=== PATIENT | male | born 1955 | race Caucasian/White ===

== ENCOUNTER 2021-04-13 05:18 | Inpatient (IN) | payer OTHER, SELFPAY ==
[2021-04-13] VITALS (9 sets, daily range): BP systolic 99–122; BP diastolic 54–72; PULSE 58–107; RESP 16–26; TEMP 36.4–37; O2SAT 90–95; BMI 23.0
--- NOTE | ~2021-04-13 | XR_ITS ---
XR chest 1V portable DATE: 04/13/2021 07:32 INDICATION: Fatigue, loss of appetite, dizziness. Covid-positive. TECHNIQUE: Portable upright AP chest on 04/13/2021 at 0727 hours COMPARISON: None FINDINGS: There are patchy bilateral pulmonary infiltrates involving particularly the mid to lower ri ght lung and mid upper left lung, suggesting bilateral pneumonia. Heart size is normal. No pleural effusion or pulmonary vascular congestion or pneumothorax. IMPRESSION: Patchy bilateral pulmonary infiltrates suggesting bilateral pneumonia Reviewed, dictated and finalized at location A. STANT GENERAL MANAGER IMPRESSION: Patchy bilateral pulmonary infiltrates suggesting bilateral pneumon ia
[2021-04-13 07:45] LABS: HCO3 ABG 20.8 mEq/l (22.0-26.0); Oxygen Saturation ABG 92.9 % (95.0-100.0); PCO2 ABG 27.8 mmHg (35.0-45.0); PO2 ABG 58.9 mmHg (80.0-100.0); pH ABG 7.492 (7.350-7.450)
[2021-04-13 07:46] LABS: Alveolar/Arterial O2 Gradient 57.5 mmHg; Device ROOM AIR; Fractional Inspired Oxygen 21 %; Modified Allen's Test Pass; Oxyhemoglobin 90.4 % THb (90.0-100.0); Site Drawn LEFT RADIAL; Total Hemoglobin 15.5 g/dL (12.0-18.0)
[2021-04-13 07:47] LABS: Oxygen Content ABG 19.7 %vol (16.0-22.0)
--- NOTE | 2021-04-13 08:13 | ED.GENADULT ---
HPI - General Adult General Chief complaint: Weakness Stated complaint: COVID+, weakness Time Seen by Provider: 04/13/21 07:17 Source: patient Mode of arrival: ambulatory Limitations: no limitations History of Present Illness HPI narrative: Patient presents with general weakness, poor appetite, 10 pound loss over the last few days, nausea and dizziness patient tested positive for Covid 19 on April 06, not been vaccinated, Related Data Home Medications Medication Instructions Recorded Confirmed atorvastatin 10 mg PO DAILY 04/13/21 04/13/21 Allergies Allergy/AdvReac Type Severity Reaction Status Date / Time No Known Allergies Allergy Mild Verified 04/13/21 06:04 Review of Systems Review of Systems: CONSTITUTIONAL: Denies fever, chills, or sweats. Complaining of poor appetite, dizziness and weight loss EYES: Denies visual changes, redness, or discharge. ENT: Denies rhinorrhea, congestion, sore throat, or otalgia. CARDIOVASCULAR: Denies chest pain, palpitations, or edema. RESPIRATORY: Denies cough or dyspnea. GASTROINTESTINAL: Nausea GENITOURINARY: Denies dysuria or hematuria. SKIN: Denies rash or itching. MUSCULOSKELETAL: Denies back pain, joint pain, or myalgia. NEUROLOGIC: Denies headache, numbness, PSYCHIATRIC: Depressed PMFSH Past Medical History Medical History Hyperlipidemia Surgical History Surgical History History of hernia repair Family History Family History Father Hypertension Social History Social History Social History: Surrogate decision maker: Marya Montgomery, spouse. Code status: Full code. Smoking status: Never smoker Alcohol intake: current Drinks per week: 5 Substance use: never Substance use type: does not use Additional living arrangements comments: Patient lives in [place] with his . Additional occupation/education comments: Works for [employer]. Exam Narrative: General appearance: Well-developed, well-nourished, looks weak, no respiratory distress Skin: Normal color Head: Normocephalic, nontraumatic Eyes: Clear conjunctiva ENT: Oropharynx normal, ears normal, nose normal Neck: Supple, nontender Chest and respiratory: Airway patent, no respiratory distress, no accessory muscle use Heart: Regular rate/rhythm Abdomen: Soft, nontender, no organomegaly, quiet bowel sounds Vascular: Normal peripheral pulses, normal capillary refill. Musculoskeletal: Normal range of motion, nontender back Neurologic: Alert and oriented ?3, FACILITY TECHNICIAN is normal as tested, no gross motor deficit Course Course Emergency Course: Stable Vital Signs Vital signs: Vital Signs Temperature 36.6 C 04/13/21 05:24 Pulse Rate 66 04/13/21 05:24 Respiratory Rate 18 04/13/21 05:24 Blood Pressure 111/67 04/13/21 05:24 Pulse Oximetry 95 04/13/21 05:24 Temperature 36.6 C 04/13/21 15:49 Pulse Rate 61 04/13/21 15:49 Respiratory Rate 18 04/13/21 15:49 Blood Pressure 112/63 04/13/21 15:49 Pulse Oximetry 92 04/13/21 15:49 Medical Decision Making MDM Narrative Medical decision making narrative: Covid infection with complication. Labs ordered, IV fluids ordered. Further plan to follow Differential Diagnosis Differential Diagnosis: Electrolyte imbalance, hypoxia, Covid pneumonia Vital Signs Vital Signs: Vital Signs Temperature 36.6 C 04/13/21 05:24 Pulse Rate 66 04/13/21 05:24 Respiratory Rate 18 04/13/21 05:24 Blood Pressure 111/67 04/13/21 05:24 Pulse O
[2021-04-13] MEDS: KETOROLAC 30 MG/ML VIAL (*BKC) IV PUSH (08:48)
[2021-04-13] MEDS: SODIUM CHLORIDE 0.9% IV 1,000 ML 999 ML IV CONT (08:48)
[2021-04-13] MEDS: ONDANSETRON INJ 4 MG/2 ML VIAL 8 MG IV PUSH (08:50)
[2021-04-13] MEDS: ACETAMINOPHEN 500 MG TABLET 1000 MG PO (08:51)
[2021-04-13 09:06] LABS: Hematocrit 42.2 % (42.0-52.0); Hemoglobin 14.7 g/dL (14.0-18.0); Immature Granulocyte Absolute 0.01 K/mm3 (0.00-0.031); Immature Granulocyte Percent A 0.3 % (0-0.5); Immature Platelet Fraction Pct 3.1 % (0.9-11.2); Lymphocytes Absolute Auto 0.36 K/mm3 (0.9-3.2); Lymphocytes Percent Auto 9.2 % (18.3-44.2); Mean Corpuscular HGB Conc 34.8 g/dl (32-36); Mean Corpuscular Hemoglobin 29.6 pg (26-34); Mean Corpuscular Volume 84.9 fl (80-100); Monocytes Absolute Auto 0.4 K/mm3 (0.1-0.6); Neutrophils Absolute Auto 3.2 K/mm3 (1.3-6.7); Neutrophils Percent Auto 81.5 % (45.5-73.1); Platelet Count Result 132 k/mm3 (150-375); Red Blood Count 4.97 M/mm3 (4.6-6.20); Red Cell Distribution Width 13.2 % (11.5-14.5); White Blood Count 3.9 K/mm3 (4.5-10.0)
[2021-04-13 09:16] LABS: INR 0.9; Prothrombin Time 11.6 Seconds (11.1-14.7)
[2021-04-13 09:17] LABS: Partial Thromboplastin Time 32.6 SECONDS (22.3-36.8)
[2021-04-13 09:19] LABS: Alanine Aminotransferase 37 U/L (4-50); Albumin Level 3.6 g/dL (3.5-5.1); Alkaline Phosphatase 66 U/L (38-126); Anion Gap 5 mmol/L (8-16); Aspartate Amino Transferase 69 U/L (17-59); Bilirubin,Total 0.4 mg/dL (0.2-1.3); Blood Urea Nitrogen 19 mg/dL (9-20); Carbon Dioxide 27 mmol/L (22-30); Chloride 99 mmol/L (98-107); Estimated CRCL calculation 58 ml/min; Estimated Glomerular Filt Rate 60; Glucose 109 mg/dL (65-110); Potassium 3.6 mmol/L (3.4-5.0); Sodium 131 mmol/L (137-145)
[2021-04-13] MEDS: REMDESIVIR 200 MG/NS 250 ML 200 MG/250 ML BAG 250 MG IVPB (11:37)
--- NOTE | 2021-04-13 13:20 | PM.IMHP ---
H&P: HPI History of Present Illness Date/Time: 04/13/21 13:20 Chief Complaint: Weakness. Narrative: This is a very pleasant 65-year-old male with hyperlipidemia who presented to the emergency department earlier today from home for evaluation of weakness. He has not been feeling well for about 1 week with nausea, aches, dry cough, diarrhea, and T-max of 101?. His diarrhea seems to have slowed down however his oral intake remains poor and he estimates that he has lost about 10 lb in the last 5 days. His has had similar symptoms and he tested positive for COVID on 04/06/2021. He decided to come in today because he is not getting any better and continues to be extremely fatigued with little to no energy. His vital signs were stable on arrival to the emergency department. Chest x-ray showed bilateral patchy pulmonary infiltrates suggesting bilateral pneumonia and the patient is being admitted in this setting. At the time my evaluation he feels little bit better simply with IV fluids. Aside from an occasional Advil he has not taken anything for his symptoms. He did not get a COVID vaccination. Review of Systems Review of Systems: Twelve systems were reviewed and are negative except for as per HPI. [facility] Past Medical History Medical History Hyperlipidemia Surgical History Surgical History History of hernia repair Family History Family History Father Hypertension Social History Social History (Updated 04/13/21 @ 22:10 by Yamila Mejia PA-C) Social History: Surrogate decision maker: Marya Montgomery, spouse. Code status: Full code. Smoking status: Never smoker Alcohol intake: current Drinks per week: 5 Substance use: never Substance use type: does not use Additional living arrangements comments: Patient lives in [place] with his . 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 Meds Home Medications and Allergies Home Medications Medication Instructions Recorded Confirmed Type hydrocortisone 1 %-pramoxine 1 % 1 applic RECTAL QID PRN #10 gm 04/21/19 04/13/21 Rx rectal foam atorvastatin 10 mg PO DAILY 04/13/21 04/13/21 History Allergies Allergy/AdvReac Type Severity Reaction Status Date / Time No Known Allergies Allergy Mild Verified 04/13/21 06:04 Vital Signs Vital Signs - 24 hr 04/13/21 05:24 04/13/21 05:59 04/13/21 07:03 Temperature 97.9 F 98.6 F Pulse Rate 66 66 62 Respiratory Rate 18 26 H 20 Blood Pressure 111/67 121/72 111/67 Pulse Oximetry 95 95 92 04/13/21 08:00 04/13/21 09:00 04/13/21 10:15 Temperature Pulse Rate 61 64 64 Respiratory Rate 22 H 22 H 22 H Blood Pressure 122/69 119/68 108/63 Pulse Oximetry 93 93 93 04/13/21 11:40 Temperature 97.6 F Pulse Rate 107 H Respiratory Rate 22 H Blood Pressure 99/54 L Pulse Oximetry 94 Exam Narrative: General: Mildly ill-appearing gentleman sitting up in bed. Weight: 79.2 kg. BMI: 23.0. HEENT: PERRL, EOMI. Sclerae anicteric. Tacky mucous membranes. Neck: Supple. No JVD or lymphadenopathy. Respiratory: Respirations are nonlabored. Perhaps mild conversational dyspnea but nothing significant. Bibasilar crackles present. Cardiovascular: Regular rate and rhythm with S1-S2. Gastrointestinal: Abdomen is soft, nontender, and nondistended with positive bowel sounds. Skin: Warm and dry. No rash or lesions on limited exam. Extremities: No cyanosis, clubbing, or edema. Radial and pedal pulses intact. Negative Luzmaria sign. Neurological: Alert. Cranial nerves 2-12 are grossly intact. No gross focal deficits to casual conversation. Psychiatric: Pleasant and cooperative with normal mood and affect. Judgment and insight intact. H&P: Results Labs Labs
[2021-04-13 14:03] LABS: Add Urine Microscopic? YES; Appearance Urine Clear (Clear); Bilirubin Urine Negative (Negative); Blood Urine 3+ (Negative); Color Urine Yellow (Yellow); Glucose Urine UA Negative (Negative); Ketones Urine Trace mg/dL (Negative); Leukocyte Esterase Ur Negative LEU/UL (Negative); Mucus Urine Rare /lpf; Nitrate Urine Negative (Negative); Protein Urine 1+ mg/dL (Negative); RBC Urine 21-50 /hpf (0-2); Specific Grav Ur 1.016 (1.001-1.035); Squamous Epithelial Cell Urine Rare /hpf (Few)
[2021-04-13 14:39] LABS: CRP 4.9 mg/dL (<1.0); Lactate Dehydrogenase 960 U/L (313-618)
[2021-04-13 14:52] LABS: D Dimer 0.52 ug/mL (<0.48)
[2021-04-13] MEDS: SODIUM CHLORIDE 0.9% IV 1,000 ML 100 ML IV CONT (16:05)
[2021-04-14] VITALS (7 sets, daily range): BP systolic 108–124; BP diastolic 54–79; PULSE 54–62; RESP 16–20; TEMP 36.3–37.4; O2SAT 88–92; BMI 23.0
[2021-04-14 06:56] LABS: Alanine Aminotransferase 37 U/L (4-50); Albumin Level 3.1 g/dL (3.5-5.1); Alkaline Phosphatase 58 U/L (38-126); Anion Gap 0 mmol/L (8-16); Aspartate Amino Transferase 64 U/L (17-59); Bilirubin,Total 0.3 mg/dL (0.2-1.3); Blood Urea Nitrogen 22 mg/dL (9-20); Calcium 7.5 mg/dL (8.4-10.2); Carbon Dioxide 27 mmol/L (22-30); Chloride 104 mmol/L (98-107); Estimated CRCL calculation 65 ml/min; Estimated Glomerular Filt Rate > 60; Glucose 124 mg/dL (65-110); Magnesium 2.1 mg/dL (1.6-2.3); Potassium 3.8 mmol/L (3.4-5.0); Sodium 131 mmol/L (137-145)
[2021-04-14 06:57] LABS: Hematocrit 38.6 % (42.0-52.0); Hemoglobin 13.3 g/dL (14.0-18.0); Mean Corpuscular HGB Conc 34.5 g/dl (32-36); Mean Corpuscular Hemoglobin 29.1 pg (26-34); Mean Corpuscular Volume 84.5 fl (80-100); Mean Platelet Volume 9.9 fl (7.4-10.4); Platelet Count Result 160 k/mm3 (150-375); Red Blood Count 4.57 M/mm3 (4.6-6.20); Red Cell Distribution Width 13.3 % (11.5-14.5); White Blood Count 3.8 K/mm3 (4.5-10.0)
[2021-04-14 07:18] LABS: Prothrombin Time 12.8 Seconds (11.1-14.7)
[2021-04-14 08:25] LABS: CRP 3.4 mg/dL (<1.0); Lactate Dehydrogenase 1025 U/L (313-618)
[2021-04-14 10:13] LABS: Ferritin > 2000.00 ng/mL (11.1-264)
[2021-04-14] MEDS: ENOXAPARIN 40 MG/0.4 ML SYRINGE SUB-Q (10:14)
[2021-04-14] MEDS: REMDESIVIR 100 MG/NS 250 ML 100 MG/250 ML BAG 250 MG IVPB (10:14)
--- NOTE | 2021-04-14 16:55 | PM.IMPN ---
Progress Note: A&P Assessment and Plan (1) Pneumonia due to 2019-nCoV: Code(s): U07.1 - COVID-19; J12.82 - Pneumonia due to coronavirus disease 2019 Status: Acute Assessment and Plan: Symptom onset 04/06/2021. Positive home test on 04/08/2021. CXR showed patchy bilateral pulmonary infiltrates suggestive of bilateral pneumonia. Resume dexamethasone given his oxygen requirement Continue remdesivir #2 Supplemental O2 as needed with goal saturation 92% or above. Currently requiring 2 L per nasal cannula Trend inflammatory markers Supportive care to include bronchodilators, expectorants, antipyretics, incentive spirometry He has not been vaccinated for COVID-19 (2) Nausea, vomiting, and diarrhea: Code(s): R11.2 - Nausea with vomiting, unspecified; R19.7 - Diarrhea, unspecified Status: Acute Assessment and Plan: Resolved. He was rehydrated with IV fluids and is now euvolemic and tolerating oral intake Antiemetics available as needed (3) Dehydration: Code(s): E86.0 - Dehydration Status: Acute Assessment and Plan: He has been adequately hydrated. Encourage oral intake. (4) Generalized weakness: Code(s): R53.1 - Weakness Status: Acute Assessment and Plan: Secondary to COVID-19 Encourage ambulation as tolerated Subjective Date/time seen: 04/14/21 16:55 Interval history: Date of service: 04/14/2021 Adriel Montgomery is a 65-year-old male with a history of hyperlipidemia who is seen in follow-up for COVID-19 pneumonia. His main concern is feeling extremely fatigued and weak. He is starting to feel little bit better today, stating he is about 50% improved. He does endorse shortness of breath especially with deep breaths or with coughing. He has been able to get lots of rest and feels improved. He is no longer endorsing dizziness and denies lightheadedness. He still does have poor appetite but has been trying to eat a bit more and is able to keep food down. Denies nausea or vomiting. He has been able to get up and walk to the bathroom he feels that his endurance is improving. Denies urinary symptoms. Denies diarrhea, though states he was having loose stools just prior to presentation. Denies fevers or chills. He has no additional concerns at this time. Review of Systems Review of Systems: All systems reviewed & are unremarkable except as noted in HPI and below Exam Narrative: Mr. Montgomery is a thin, well-appearing 65-year-old male who is lying semi recumbent in bed in bed. He appears comfortable and is in NARD. Neuro: awake, alert and oriented x4, speech clear, no focal neuro deficits noted HEENMT: normocephalic, atraumatic, EOMI, sclerae anicteric Neck: supple, no lymphadenopathy Respiratory: clear to auscultation bilaterally, nonlabored breathing Cardio: regular rate, regular rhythm with S1-S2 Abdomen: nondistended, normoactive bowel sounds, soft, nontender to palpation Extremities: no edema, erythema, or tenderness to palpation, DP pulses 2+ bilaterally Skin: no rashes or lesions, warm and dry Psych: appropriate mood and affect, judgment and insight intact Objective Data Vital Signs Vital Signs: Vital Signs - 24 hr 04/13/21 20:00 04/14/21 00:00 04/14/21 04:00 Temperature 98.0 F 99.3 F 97.7 F Pulse Rate 58 L 57 L 62 Respiratory Rate 16 16 16 Blood Pressure 109/71 109/54 L 124/79 Pulse Oximetry 90 92 92 04/14/21 08:00 04/14/21 08:05 04/14/21 12:00 Temperature 97.8 F 97.9 F Pulse Rate 60 55 L Respiratory Rate 16 16 Blood Pressure 111/60 108/60 Pulse Oximetry 88 L 90 91 04/14/21 16:00 Temperature 98.4 F Pulse Rate 54 L Respiratory Rate 18 Blood Pressure 123/69 Pulse Oximetry 92 Intake/Output Intake/Output: Intake & Output 04/11/21 04/12/21 04/13/21 04/14/21 23:59 23:59 23:59 23:59 Intake Total 1600 990 Output Total 400 200 Balance 1200 790 Meds/Results Medications:
[2021-04-14] MEDS: ATORVASTATIN 10 MG TABLET PO (18:09)
[2021-04-14 19:04] LABS: SARS-CoV-2 RNA PCR Positive
[2021-04-14] MEDS: ONDANSETRON INJ 4 MG/2 ML VIAL IV PUSH (22:39)
[2021-04-15] VITALS: BP 131/73; PULSE 67; RESP 24; TEMP 36.6; O2SAT 90
[2021-04-15 04:00] VITALS: BP 115/53; PULSE 58; RESP 18; TEMP 36.8; O2SAT 91
[2021-04-15 06:45] LABS: Hematocrit 40.1 % (42.0-52.0); Hemoglobin 13.8 g/dL (14.0-18.0); Mean Corpuscular HGB Conc 34.4 g/dl (32-36); Mean Corpuscular Hemoglobin 29.2 pg (26-34); Mean Platelet Volume 9.4 fl (7.4-10.4); Platelet Count Result 198 k/mm3 (150-375); Red Blood Count 4.72 M/mm3 (4.6-6.20); Red Cell Distribution Width 13.3 % (11.5-14.5); White Blood Count 5.9 K/mm3 (4.5-10.0)
[2021-04-15 06:54] LABS: Prothrombin Time 12.7 Seconds (11.1-14.7)
[2021-04-15 07:25] LABS: Alanine Aminotransferase 43 U/L (4-50); Albumin Level 3.2 g/dL (3.5-5.1); Alkaline Phosphatase 57 U/L (38-126); Anion Gap 5 mmol/L (8-16); Aspartate Amino Transferase 70 U/L (17-59); Bilirubin,Total 0.3 mg/dL (0.2-1.3); Blood Urea Nitrogen 21 mg/dL (9-20); CRP 1.8 mg/dL (<1.0); Calcium 7.6 mg/dL (8.4-10.2); Carbon Dioxide 24 mmol/L (22-30); Chloride 103 mmol/L (98-107); Estimated CRCL calculation 78 ml/min; Estimated Glomerular Filt Rate > 60; Glucose 101 mg/dL (65-110); Lactate Dehydrogenase 1029 U/L (313-618); Potassium 3.7 mmol/L (3.4-5.0); Sodium 132 mmol/L (137-145)
[2021-04-15 08:00] VITALS: BP 122/67; PULSE 58; RESP 24; TEMP 36.8; O2SAT 90
[2021-04-15] MEDS: ENOXAPARIN 40 MG/0.4 ML SYRINGE SUB-Q (10:06)
[2021-04-15] MEDS: ATORVASTATIN 10 MG TABLET PO (10:06)
[2021-04-15] MEDS: DEXAMETHASONE 2 MG TABLET 6 MG PO (10:06)
[2021-04-15] MEDS: ONDANSETRON INJ 4 MG/2 ML VIAL IV PUSH ×2 (10:10→15:05)
[2021-04-15] MEDS: REMDESIVIR 100 MG/NS 250 ML 100 MG/250 ML BAG 250 MG IVPB (11:15)
[2021-04-15 12:00] VITALS: BP 121/66; PULSE 60; RESP 24; TEMP 36.7; O2SAT 90
--- NOTE | 2021-04-15 12:15 | PM.IMPN ---
Progress Note: A&P Assessment and Plan (1) Pneumonia due to 2019-nCoV: Code(s): U07.1 - COVID-19; J12.82 - Pneumonia due to coronavirus disease 2019 Status: Acute Assessment and Plan: Symptom onset 04/06/2021. Positive home test on 04/08/2021. CXR showed patchy bilateral pulmonary infiltrates suggestive of bilateral pneumonia. dexamethasone 6mg PO daily, will increase to BID Continue remdesivir #3 Supplemental O2 as needed with goal saturation 92% or above. Currently requiring 2-3 L per nasal cannula inflammatory markers: CRP 1.8, LDH 1029, Ferritin 1910 Supportive care to include bronchodilators, expectorants, antipyretics, incentive spirometry He has not been vaccinated for COVID-19 (2) Acute respiratory failure: Code(s): J96.00 - Acute respiratory failure, unspecified whether with hypoxia or hypercapnia Status: Acute Assessment and Plan: Patient on supplemental oxygen Wean to maintain saturation Related to COVID (3) Generalized weakness: Code(s): R53.1 - Weakness Status: Acute Assessment and Plan: Secondary to COVID-19 Encourage ambulation as tolerated (4) Constipation: Code(s): K59.00 - Constipation, unspecified Status: Acute Assessment and Plan: Miralax and senna added Time Spent With Patient Time with patient: 25 - 35 minutes Subjective Date/time seen: 04/15/21 12:15 Interval history: Interval history: Date of service: 04/14/2021 Adriel Montgomery is a 65-year-old male with a history of hyperlipidemia who is seen in follow-up for COVID-19 pneumonia. His main concern is feeling extremely fatigued and weak. He is starting to feel little bit better today, stating he is about 50% improved. He does endorse shortness of breath especially with deep breaths or with coughing. He has been able to get lots of rest and feels improved. He is no longer endorsing dizziness and denies lightheadedness. He still does have poor appetite but has been trying to eat a bit more and is able to keep food down. Denies nausea or vomiting. He has been able to get up and walk to the bathroom he feels that his endurance is improving. Denies urinary symptoms. Denies diarrhea, though states he was having loose stools just prior to presentation. Denies fevers or chills. He has no additional concerns at this time. Date/Time 04/15/21 1215 Patient is a bit discouraged today. Patient stated that he is very weak and fatigued. He states that his body just hurts everywhere. He is also worried about not having a bowel movement since before he got here. His appetite is still lacking. He is getting moments of nausea and quizziness. He is also lightheaded, however, he denies headaches, vomiting, chest pain, urinary symptoms, or abnormal swelling. 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 He ended it with he just does not know if he should keep up with hope. Review of Systems Review of Systems: All systems reviewed & are unremarkable except as noted in HPI and below Exam Const: General: cooperative, healthy appearing, no acute distress, well developed, alert, awake and tired appearing Nutritional Appearance: well nourished Orientation/consciousness: oriented to person, oriented to place, oriented to time and patient oriented x3 Limitations: no limitations HENMT: Head: normal to inspection Ears: hearing grossly normal bilaterally General nose exam: Normal external nose present Mouth: Yes Normal oral and palatal mucosa present, Yes lip normal and Yes tongue normal Teeth and gingiva: abnormal tooth and associated gingiva and poor dentition Eyes: General: appearance normal, both eyes and all related structures Neck: Neck: normal visual inspection, full ROM, trachea midline and supple Chest: Chest palpation & inspection: normal inspection of the chest Resp: Effort & Inspection: normal respir
[2021-04-15] MEDS: polyethylene glycoL 3350 17 GM POWD.PACK PO (15:05)
[2021-04-15] MEDS: SENNA/DOCUSATE SODIUM TABLET 1 TAB PO (15:05)
[2021-04-15 16:00] VITALS: BP 125/67; PULSE 56; RESP 20; TEMP 36.8; O2SAT 92
[2021-04-15 20:00] VITALS: BP 130/73; PULSE 56; RESP 20; TEMP 36.3; O2SAT 91
[2021-04-16] VITALS (9 sets, daily range): BP systolic 124–143; BP diastolic 69–79; PULSE 56–66; RESP 16–22; TEMP 36.3–36.8; O2SAT 90–93
[2021-04-16 06:30] LABS: Basophils Percent Auto 0.2 % (0.2-1.2); Hematocrit 41.7 % (42.0-52.0); Hemoglobin 14.2 g/dL (14.0-18.0); Immature Granulocyte Absolute 0.07 K/mm3 (0.00-0.031); Immature Granulocyte Percent A 1.5 % (0-0.5); Lymphocytes Absolute Auto 0.65 K/mm3 (0.9-3.2); Lymphocytes Percent Auto 14.1 % (18.3-44.2); Mean Corpuscular HGB Conc 34.1 g/dl (32-36); Mean Corpuscular Hemoglobin 28.8 pg (26-34); Mean Corpuscular Volume 84.6 fl (80-100); Mean Platelet Volume 9.3 fl (7.4-10.4); Monocytes Absolute Auto 0.9 K/mm3 (0.1-0.6); Monocytes Percent Auto 19.3 % (2.6-8.5); Neutrophils Percent Auto 64.9 % (45.5-73.1); Platelet Count Result 224 k/mm3 (150-375); Red Blood Count 4.93 M/mm3 (4.6-6.20); Red Cell Distribution Width 13.2 % (11.5-14.5); White Blood Count 4.6 K/mm3 (4.5-10.0)
[2021-04-16 06:46] LABS: Alanine Aminotransferase 47 U/L (4-50); Albumin Level 3.2 g/dL (3.5-5.1); Alkaline Phosphatase 57 U/L (38-126); Anion Gap 2 mmol/L (8-16); Aspartate Amino Transferase 68 U/L (17-59); Bilirubin,Total 0.4 mg/dL (0.2-1.3); Blood Urea Nitrogen 18 mg/dL (9-20); CRP 2.7 mg/dL (<1.0); Calcium 7.7 mg/dL (8.4-10.2); Carbon Dioxide 27 mmol/L (22-30); Chloride 104 mmol/L (98-107); Estimated CRCL calculation 78 ml/min; Estimated Glomerular Filt Rate > 60; Glucose 119 mg/dL (65-110); Lactate Dehydrogenase 989 U/L (313-618); Magnesium 1.9 mg/dL (1.6-2.3); Potassium 3.8 mmol/L (3.4-5.0); Sodium 133 mmol/L (137-145)
[2021-04-16 07:16] LABS: D Dimer 0.35 ug/mL (<0.48)
--- NOTE | 2021-04-16 08:50 | PM.IMPN ---
Progress Note: A&P Assessment and Plan (1) Pneumonia due to 2019-nCoV: Code(s): U07.1 - COVID-19; J12.82 - Pneumonia due to coronavirus disease 2019 Status: Acute Assessment and Plan: Symptom onset 04/06/2021. Positive home test on 04/08/2021. CXR showed patchy bilateral pulmonary infiltrates suggestive of bilateral pneumonia. dexamethasone 6mg PO daily, will increase to BID Continue remdesivir #3 Supplemental O2 as needed with goal saturation 92% or above. On room air he is about 90% inflammatory markers: CRP 2.7, LDH 989, Ferritin 1230 Supportive care to include bronchodilators, expectorants, antipyretics, incentive spirometry He has not been vaccinated for COVID-19 (2) Acute respiratory failure: Code(s): J96.00 - Acute respiratory failure, unspecified whether with hypoxia or hypercapnia Status: Acute Assessment and Plan: Patient on supplemental oxygen Wean to maintain saturation Related to COVID (3) Generalized weakness: Code(s): R53.1 - Weakness Status: Acute Assessment and Plan: Secondary to COVID-19 Encourage ambulation as tolerated (4) Constipation: Code(s): K59.00 - Constipation, unspecified Status: Acute Assessment and Plan: Miralax and senna added Time Spent With Patient Time with patient: Greater than 35 minutes Subjective Date/time seen: 04/16/21 0850 Interval history: Interval history: Date of service: 04/14/2021 Adriel Montgomery is a 65-year-old male with a history of hyperlipidemia who is seen in follow-up for COVID-19 pneumonia. His main concern is feeling extremely fatigued and weak. He is starting to feel little bit better today, stating he is about 50% improved. He does endorse shortness of breath especially with deep breaths or with coughing. He has been able to get lots of rest and feels improved. He is no longer endorsing dizziness and denies lightheadedness. He still does have poor appetite but has been trying to eat a bit more and is able to keep food down. Denies nausea or vomiting. He has been able to get up and walk to the bathroom he feels that his endurance is improving. Denies urinary symptoms. Denies diarrhea, though states he was having loose stools just prior to presentation. Denies fevers or chills. He has no additional concerns at this time. Date/Time 04/15/21 1215 Patient is a bit discouraged today. Patient stated that he is very weak and fatigued. He states that his body just hurts everywhere. He is also worried about not having a bowel movement since before he got here. His appetite is still lacking. He is getting moments of nausea and quizziness. He is also lightheaded, however, he denies headaches, vomiting, chest pain, urinary symptoms, or abnormal swelling. 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 He ended it with he just does not know if he should keep up with hope. Date/Time 04/16/21 0850 Patient stated that he is doing better today. He was sitting up eating his breakfast. Patient still looks a little tired but overall better. He has no production with his cough and his cough is very mild at this point. Patient did state this appetite is better and that he feels better. Patient still has had a bowel movement still constipated this time. He is up moving around and he has been able to maintain 90% on room air. Patient denies chest pain, abdominal pain, nausea, vomiting, diarrhea, sweats, fevers, chills. Review of Systems Review of Systems: All systems reviewed & are unremarkable except as noted in HPI and below Exam Const: General: cooperative, no acute distress, well developed, alert, awake and tired appearing Nutritional Appearance: well nourished Orientation/consciousness: oriented to person, oriented to place, oriented to time and patient oriented x3 Limitations: no limitations
[2021-04-16] MEDS: DEXAMETHASONE 2 MG TABLET 6 MG PO ×2 (09:39→19:45)
[2021-04-16] MEDS: ENOXAPARIN 40 MG/0.4 ML SYRINGE SUB-Q (09:39)
[2021-04-16] MEDS: SENNA/DOCUSATE SODIUM TABLET 1 TAB PO (09:39)
[2021-04-16] MEDS: ATORVASTATIN 10 MG TABLET PO (09:39)
[2021-04-16] MEDS: polyethylene glycoL 3350 17 GM POWD.PACK PO (09:39)
[2021-04-16] MEDS: REMDESIVIR 100 MG/NS 250 ML 100 MG/250 ML BAG 250 MG IVPB (12:06)
[2021-04-16] MEDS: MAGNESIUM CITRATE 300 ML BTL 150 ML PO (12:06)
[2021-04-17 04:00] VITALS: BP 135/66; PULSE 51; RESP 18; TEMP 36.4; O2SAT 90
[2021-04-17 07:56] LABS: Alanine Aminotransferase 92 U/L (4-50); Albumin Level 3.4 g/dL (3.5-5.1); Alkaline Phosphatase 57 U/L (38-126); Anion Gap 9 mmol/L (8-16); Aspartate Amino Transferase 127 U/L (17-59); Bilirubin,Total 0.4 mg/dL (0.2-1.3); Blood Urea Nitrogen 20 mg/dL (9-20); CRP 1.7 mg/dL (<1.0); Calcium 8.2 mg/dL (8.4-10.2); Carbon Dioxide 27 mmol/L (22-30); Chloride 100 mmol/L (98-107); Estimated CRCL calculation 87 ml/min; Estimated Glomerular Filt Rate > 60; Glucose 136 mg/dL (65-110); Lactate Dehydrogenase 1032 U/L (313-618); Magnesium 2.3 mg/dL (1.6-2.3); Potassium 3.9 mmol/L (3.4-5.0); Sodium 136 mmol/L (137-145)
[2021-04-17 08:00] VITALS: BP 126/72; PULSE 59; RESP 20; TEMP 36.4; O2SAT 92
[2021-04-17 08:02] LABS: Basophils Percent Auto 0.5 % (0.2-1.2); Hematocrit 41.4 % (42.0-52.0); Hemoglobin 14.4 g/dL (14.0-18.0); INR 1.1; Immature Granulocyte Absolute 0.07 K/mm3 (0.00-0.031); Immature Granulocyte Percent A 1.7 % (0-0.5); Lymphocytes Absolute Auto 0.58 K/mm3 (0.9-3.2); Lymphocytes Percent Auto 13.7 % (18.3-44.2); Mean Corpuscular HGB Conc 34.8 g/dl (32-36); Mean Corpuscular Hemoglobin 29.4 pg (26-34); Mean Corpuscular Volume 84.5 fl (80-100); Mean Platelet Volume 9.2 fl (7.4-10.4); Monocytes Absolute Auto 0.6 K/mm3 (0.1-0.6); Monocytes Percent Auto 14.9 % (2.6-8.5); Neutrophils Absolute Auto 2.9 K/mm3 (1.3-6.7); Neutrophils Percent Auto 69.2 % (45.5-73.1); Platelet Count Result 274 k/mm3 (150-375); Prothrombin Time 13.7 Seconds (11.1-14.7); Red Cell Distribution Width 13.2 % (11.5-14.5); White Blood Count 4.2 K/mm3 (4.5-10.0)
[2021-04-17 08:05] LABS: D Dimer 0.34 ug/mL (<0.48)
[2021-04-17] MEDS: polyethylene glycoL 3350 17 GM POWD.PACK PO (08:54)
[2021-04-17] MEDS: ENOXAPARIN 40 MG/0.4 ML SYRINGE SUB-Q (08:54)
[2021-04-17] MEDS: SENNA/DOCUSATE SODIUM TABLET 1 TAB PO (08:55)
[2021-04-17] MEDS: DEXAMETHASONE 2 MG TABLET 6 MG PO (08:55)
[2021-04-17] MEDS: ATORVASTATIN 10 MG TABLET PO (08:55)
[2021-04-17] MEDS: REMDESIVIR 100 MG/NS 250 ML 100 MG/250 ML BAG 250 MG IVPB (10:41)
--- NOTE | 2021-04-17 11:00 | PM.DS ---
DS: Admitting Diagnosis Discharge Date DOS 04/17/21 11:00 Admitting Diagnosis COVID-19 PNA DS: Discharge Diagnosis Discharge Diagnosis (1) Pneumonia due to 2019-nCoV: Code(s): U07.1 - COVID-19; J12.82 - Pneumonia due to coronavirus disease 2019 Status: Acute Assessment and Plan: Symptom onset 04/06/2021. Positive home test on 04/08/2021. CXR showed patchy bilateral pulmonary infiltrates suggestive of bilateral pneumonia. dexamethasone 6mg PO daily, will increase to BID Continue remdesivir #4 Supplemental O2 as needed with goal saturation 92% or above. On room air he is about 90% inflammatory markers: CRP 1.7, LDH 1032, Ferritin 941 Supportive care to include bronchodilators, expectorants, antipyretics, incentive spirometry He has not been vaccinated for COVID-19 (2) Acute respiratory failure: Code(s): J96.00 - Acute respiratory failure, unspecified whether with hypoxia or hypercapnia Status: Acute Assessment and Plan: Patient on supplemental oxygen Wean to maintain saturation Related to COVID Been able to maintain room air for greater than 24 hours (3) Generalized weakness: Code(s): R53.1 - Weakness Status: Acute Assessment and Plan: Secondary to COVID-19 Encourage ambulation as tolerated (4) Constipation: Code(s): K59.00 - Constipation, unspecified Status: Acute Assessment and Plan: Miralax and senna added Gave mag citrate and bisacoydl DS: Summary Hospital Course Hospital Course: patient is a 65-year-old male with a past medical history of hyperlipidemia who presented to the ED for COVID-19. Patient usually came into the was feeling extremely fatigued and weak. It was noted that the patient was hypoxic and sating in the 50s. Patient has been treated with IV remdesivir and Decadron. Patient has also been on the supplemental O2 and has been weaned to room air successfully. inflammatory markers have been trend throughout the visit along with other labs. Everything has remained stable throughout the entire visit as well. AST and ALT have been noted to be elevated and her trending down. Patient is also been complaining of constipation. Patient has received many supplements to help however has been unsuccessful at this time. Today patient said he feels great and has been able to walk around the room. He sating about 91% on room air and 93% as he just sitting there. Patient is ready to go denies chest pain denies shortness of breath, nausea, vomiting, diarrhea, constipation, weakness, fatigue. Status at Discharge Functional status at discharge: independent ambulation Overall status at discharge: patient is progressing back to baseline Time Spent with Patient Time attestation: Total time spent providing and/or coordinating discharge services: 45 minutes Time spent: Greater than 30 minutes Exam Const: General: cooperative, no acute distress, well developed, alert, awake and tired appearing Nutritional Appearance: well nourished Orientation/consciousness: oriented to person, oriented to place, oriented to time and patient oriented x3 Limitations: no limitations HENMT: Head: normal to inspection Ears: hearing grossly normal bilaterally General nose exam: Normal external nose present Mouth: Yes Normal oral and palatal mucosa present, Yes lip normal and Yes tongue normal Teeth and gingiva: abnormal tooth and associated gingiva and poor dentition Eyes: General: appearance normal, both eyes and all related structures Pupils: Equal, round and reactive pupils present Neck: Neck: normal visual inspection, full ROM, trachea midline and supple Chest: Chest palpation & inspection: normal inspection of the chest Resp: Effort & Inspection: normal respiratory effort and able to speak in complete sentences Auscultation: diminished lung sounds bilateral throughout Cardio: Jugular venous distension: n
[2021-04-17 12:00] VITALS: BP 111/68; PULSE 55; RESP 20; TEMP 36.4; O2SAT 93
[2021-04-17] MEDS: BISACODYL 5 MG TABLET EC 10 MG PO (12:53)
== END 2021-04-17 16:17 | disposition home or self-care (01) | DRG 177 ==
LOC: ANHED 07:17 → ANH3MEDSUR 11:05
PROVIDERS: Physician Assistant; Admitting Provider Family Medicine; Emergency Provider Emergency Medicine; PCP Student in an Organized Health Care Education/Training Program; Visit Provider Nurse Practitioner
DX: U07.1 COVID-19 (principal); J12.82 Pneumonia due to coronavirus disease 2019; J96.01 Acute respiratory failure with hypoxia; E86.0 Dehydration; K59.00 Constipation, unspecified; E78.5 Hyperlipidemia, unspecified
CPT/HCPCS: 36415; 36600; 71045; 80053; 81001; 82728; 82805; 83615; 83735; 85025; 85027; 85055; 85380; 85610; 85730; 86140; 87086; 96361; 96365; 96372; 96375; 96376; 99285; A9270; C9803; G0378; J1100; J1650; J1885; J2405; J7030; J8540; U0003; U0005